=== PATIENT | male | born 1990 | race Caucasian/White ===

== ENCOUNTER 2021-10-08 05:51 | Outpatient (CLI) | payer OTHER ==
[~2021-10-08] VITALS: Ht 182.8 cm; Wt 73.3 kg
== END 2021-10-11 08:32 | disposition home or self-care (01) ==
LOC: PREOP 05:51
PROVIDERS: ATTEND Surgery
DX: Z01.818 Encounter for other preprocedural examination (principal)

== ENCOUNTER 2021-10-14 08:52 | Day surgery (SDC) | payer OTHER ==
[~2021-10-14] VITALS: Ht 182.8 cm; Wt 73.3 kg
[2021-10-14] VITALS (12 sets, daily range): BP systolic 136–166; BP diastolic 87–104
[2021-10-14] MEDS ORDERED: ceFAZolin INJECTION 1,000 MG VIAL IV ONE (09:15)
[2021-10-14] MEDS: LACTATED RINGERS 1,000 ML IV PRN ×3 (09:24→12:30)
--- NOTE | 2021-10-14 09:30 | Progress Note-Pre Operative ---
Pre-Operative Progress Note H&P Reviewed The H&P was reviewed, patient examined and no changes noted. Time Seen by Provider: 09:27 Date H&P Reviewed: Oct 14, 2021 Time H&P Reviewed: : Pre-Operative Diagnosis: Right IH - incarcerated, Umbilical hernia, site ARELIS Blancas DO Oct 14, 2021 09:30
[2021-10-14] MEDS ORDERED: LIDOCAINE/EPI 1%-1:200,000 (XYLOCAINE) 30 ML VIAL ONE (09:49)
[2021-10-14] MEDS ORDERED: fentaNYL INJ 100 MCG/2 ML AMP ONE (10:03)
[2021-10-14] MEDS ORDERED: ONDANSETRON 4 MG/2 ML (SDV) Z0FRAN ONE (10:03)
[2021-10-14] MEDS ORDERED: SEVOFLURANE (ULTANE) 15 ML INHAL SOLN ONE ×2 (10:03→12:23)
[2021-10-14] MEDS ORDERED: proPOfol 200 MG/20 ML (DIPRIVAN) VIAL IV ONE (10:03)
[2021-10-14] MEDS ORDERED: LIDOCAINE PF 2% 5 ML (XYLOCAINE) VIAL ONE (10:03)
[2021-10-14] MEDS ORDERED: MIDAZOLAM 2 MG/2 ML (VERSED) VIAL ONE (10:03)
[2021-10-14] MEDS ORDERED: AMOX500C2 PO (11:21)
[2021-10-14] MEDS ORDERED: HYDROmorphone 2 MG/ML VIAL (DILAUDID) ONE (11:40)
[2021-10-14] MEDS ORDERED: NEOSTIGMINE 3 MG/3 ML VIAL ONE (12:19)
[2021-10-14] MEDS ORDERED: GLYCOPYRROLATE 0.2 MG/ML (ROBINUL) 2 ML VIAL ONE (12:19)
[2021-10-14] MEDS ORDERED: ROCURONIUM 50 MG/5 ML (ZEMURON) VIAL IV ONE (12:19)
--- NOTE | 2021-10-14 12:31 | Progress Note-Post Operative ---
Post-Operative Progess Note Surgeon (s)/Acupressure Therapist (s) Surgeon ARELIS BAR DO Acupressure Therapist: Marylin Pre-Operative Diagnosis Right IH - incarcerated, Umbilical hernia, site marked Post-Operative Diagnosis Same plus right cord lipoma and UH incarcerated Procedure & Operative Findings Date of Procedure 10/14/21 Procedure Performed/Findings 1) Laparoscopic Right inguinal herniarraphy with mesh placement - robotic assisted 2) Laparoscopic umbilical herniarraphy with mesh placement - robotic assist 3) Excision of cord lipoma After informed consent was obtained, the patient was brought to the operating room and placed on the operating table in a supine position. He was sterilely prepped and draped in a normal fashion. Local lidocaine was used to infiltrate the skin next to the umbilicus. I made an incision with #11 blade, carried down to the skin into subcutaneous tissue and then deepened down the subcutaneous tissue with Bovie electrocautery down to the fascia. Fascia was incised with Bovie electrocautery and bluntly entered the abdomen, swept a finger around and placed Kii trocar port under direct visualization. Created pneumoperitoneum, able to visualize the hernia and took a picture of this and then placed two 8 mm por ts about 10 cm on either side of the midline port using a local lidocaine, 11 blade for stab incision and then advanced the robotic port under direct visualization. Once this was in, I then placed the patient in Trendelenburg and then placed the working instruments, the fenestrated bipolar and the scissors. Looked on the left side and saw early signs of inguinal hernia. I could see a direct hernia defect on the right side. Next, I came across the peritoneum approximately 8 cm away from the hernia defect, going across laterally starting lateral about 17cm and cutting toward the median umbilical ligament. I then carefully dissected the visceral peritoneum away and down and then in the midline, went through the parietal side and dissected down to the pubic tubercle, dissecting this down carefully pushing the peritoneum away, I was able to then visualize the pubic tubercle and Miquel's ligament. I went 2 cm posterior and at this point, we then had a critical view of the dissection, able to dissect 2 cm across the midline to the right side, 2 cm posterior to the Miquel's ligament, able to then parietalize the vas deferens and spermatic vessels right at the groove between Miquel's and iliac vein and able to dissect, make sure there was no peritoneum between those two, able to see the indirect hernia space, took a picture of this, looked at the femoral space (no hernia seen). Then I carefully teased out the hernia sac and could visualize the indirect hernia space. Next I looked on the cord and cord structures. There was a large cord lipoma that I was able to reduce and cut off. This was then removed throught the port to get it out of the peritoneal space. I could clearly see the inguinal canal and the indirect space. Next I carried the posterior lateral dissection all the way out and then placed a 10 x 16 Midwieght Bard 3DMax mesh. It laid in nicely, covered the hernia defect and the rest of the area. It was above the peritoneum, sutured it at the pubic tubercle with a 3-0 Vicryl suture and tied this off. This appeared to lay in very nicely. I then brought down the pneumoperitoneum to about 8 mmHg and then started kathryn sing the peritoneum. Started laterally and used a 2-0 V-lock barbed suture to start a running stitch to close the peritoneum. This was closed nicely, took a picture of the closure at this point, then removed both needles had switched to a suture tower truck driver from the scissors. The patient was then placed back supine and place two more robotic ports to perform the Umbilical hernia. One above and one below the previous left lateral port. I was able to find fat that was incarcerated in the umbilical hernia and removed this with bovie cautery, then freed up the falciform and the pre- peritoneal fat below the umbilical defect. The defect was then closed using 0 V-lock permanent suture. The Echo Ventralight mesh was then inserted into the abdomen grabbed through the stab incision with a Elbert-Sree. The balloon was inflated on the mesh. It was then sutured in place with 2-0 Vlock 9 inch, two of them one running from 12-6 o'clock and the second from 6-12 o'clock; circumferentially. The balloon was then removed and mesh was laying flat against the abdominal wall. The mesh was sutured with pressure being decreased. The abdomen was then desufflated,the trocars were removed. The skin was then closed using 4-0 Monocryl in a running subcuticular fashion. The abdomen was washed and dried and Skin Affix was placed over the incisions. The patient tolerated procedure well without any complications. He was taken to recovery room in stable condition. Dr. Coluter assisted during this surgery by making incisions, closing incisions, helping to identify anatomy and passing/retrieving suture and needles. Anesthesia Type GET Estimated Blood Loss Estimated blood loss (mL): scant Specimens/Packing Specimens Removed right cord lipoma umbilical hernia contents ARELIS BAR DO Oct 14, 2021 12:31
[2021-10-14] MEDS ORDERED: ACHD5005 PO (12:32)
--- NOTE | 2021-10-14 12:33 | Discharge Inst-Surgical ---
Discharge Inst-Surgical Depart Medication/Instructions New, Converted or Re-Newed RX: Transmitted to Pharmacy Patient Instructions Follow up Appt: Make appointment for 1 week. [phone] Instructions: No lifting greater than 20 pounds. No strenuous activity. May shower in 24 hours, no tub bath or soaking. Use incentive spirometer at home as directed. No Smoking Skin/Wound Care: May remove bandages in am. You need to leave the Dermabond on incision it will fall off on it's own. Symptoms to Report: Appetite Changes, Extremity Discoloration, Numbness/Tingling, Swelling Increased, Bleeding Excessive, Eyesight Changes, Pain Increased, Urine Color Change, Constipation(Persistent), Fever over 101 degree F, Pain/Pressure in chest, Urinating Difficulty, Cough Up/Vomit Blood, Heart Beat Irreg/Pounding, Pain/Pressure in jaw, Cramps in feet or legs, Lightheadedness, Pain/Pressure in shoulder, Diarrhea(Persistent), Memory Changes Suddenly, Questions/Concerns, Weight gain consecutive days, Dizziness/Fainting, Nausea/Vomiting, Shortness of Breath, Weight gain over 2 pounds If questions or concerns contact your physician Or seek help at emergency department. Activity Activity as Tolerated: Yes Activity Instructions: Avoid Stress to Incision Driving Instructions: No Driving/Refer to Dr. Phipps Diet After 24 Hours: Clear Liquid if Nauseous If Any Problems/Questions/Issu: Contact Your Physician, Go to Emergency Room Skin/Wound Care Infection Signs and Symptoms: Increased Redness, Foul Odor of Wound, Increased Drainage, Skin Itchy or Has a Rash, Increased Swelling, Temperature Above 101 F Wound Care Comment: heating pad to shoulder or neck tonight for pain Bathing Instructions: Shower Stitches/Caleb/Dermabond Dis: Dermabond Ice Pack: Ice On and Off Site ARELIS BAR DO Oct 14, 2021 12:33
--- NOTE | 2021-10-14 12:45 | Anesthesia-General Post-Op ---
General Patient Condition Mental Status/LOC: Same as Preop Cardiovascular: Satisfactory Nausea/Vomiting: Absent Respiratory: Satisfactory Pain: Controlled Complications: Absent Post Op Complications Complications None Follow Up Care/Instructions Patient Instructions None needed. Anesthesia/Patient Condition Patient Condition Patient is doing well, no complaints, stable vital signs, no apparent adverse anesthesia problems. No complications reported per nursing. CHONG MEREDITH CRNA Oct 14, 2021 12:45
[2021-10-14] MEDS ORDERED: MEPERIDINE (DEMEROL) INJ 50 MG/ML ONE (12:50)
[2021-10-14] MEDS ORDERED: MEPERIDINE (DEMEROL) INJ 50 MG/ML IVP ONE (13:00)
[2021-10-14] MEDS: ONDANSETRON 4 MG/2 ML (SDV) Z0FRAN IVP PRN ×2 (13:25→13:26)
[2021-10-14] MEDS ORDERED: HYDROcodone/APAP 5 MG/325 MG (LORTAB) TAB ONE (13:53)
[2021-10-14] MEDS ORDERED: HYDROcodone/APAP 5 MG/325 MG (LORTAB) TAB PO ONE (14:00)
== END 2021-10-14 14:38 | disposition home or self-care (01) ==
LOC: SDC 08:52
PROVIDERS: ATTEND Surgery
DX: K40.30 Unilateral inguinal hernia, with obstruction, without gangrene, not specified as recurrent (principal); K42.0 Umbilical hernia with obstruction, without gangrene; D17.6 Benign lipomatous neoplasm of spermatic cord; F17.290 Nicotine dependence, other tobacco product, uncomplicated
CPT/HCPCS: 49650; 49653; 87081; C1781 ×2